=== PATIENT | female | born 1950 | race Caucasian/White ===

== ENCOUNTER 2016-11-10 13:55 | Inpatient (IN) | payer OTHER, MEDICAID ==
[2016-11-10 14:14] VITALS: BMI 33.9
--- NOTE | 2016-11-10 14:35 | ED.ABDFE ---
HPI - Time seen Time seen: 14:15 - PCP Primary Care Physician: RIKY - HPI Comment HPI Comment: PATIENT HAVE LOWER ABDOMINAL PAIN WITH CONSTIPATION SINCE FRIDAY. - Complaint Chief Complaint Doctors Comments: LOWER ABDOMINAL PAIN WITH NAUSEA. CONSTIPATED. Chief Complaint:: PT. C/O LOWER ABDOMINAL PAIN AND NAUSEA. PT. STATES SHE THOUGHT SHE WAS GETTING A UTI YESTERDAY BECAUSE SHE WAS HAVING SHARP PAINS BUT SEEMS TO THINK TODAY IT IS SOMETHING ELSE. PT. STATES SHE HAS ALSO BEEN CONSTIPATED. - Nurses notes reviewed Nurses Notes Review: Yes - Source History Provided: Patient - Mode of arrival Mode of Arrival: Ambulatory - Timing Onset of Chief Complaint: 11/07/16 Came on: Suddenly - Duration Duration: Constant Duration: Days - Location Location: RLQ, LLQ, Suprapubic - Severity Severity: Moderate - Quality Quality: Sharp - Context Onset: Suddenly - Modifying Worsening Factors: Nothing Improving Factors: Nothing - Associated signs and symptoms Associated Signs and Symptoms: Constipation PMH - PMH Past Medical History: Yes Past Medical History: Diabetes, GERD, Hypertension Past Medical History Comment: DIVERTICULITIS, BORDERLINE DIABETES, ANGINA Past Surgical History: Yes Surgical History: Cholecystectomy, Hysterectomy, Ortho Surgery Past Surgical History Comment: BACK SURGERY - Family History History of Family Medical Conditions: Yes Family Medical History: Diabetes Mellitus, Cancer, [place], Coronary Artery Disease Family Medical History Comment: CVA - Social History Does patient currently use any type of tobacco product: No Have you used tobacco products in the last 12 months: No Type of Tobacco Use: None Does any household member use tobacco: No Alcohol Use: None Do you use any recreational Drugs:: No Lives With: Spouse Lives Where: Home - infectious screening In the last 2 months have you had wt loss of >10#?: NO Have you had fever, night sweats or hemotysis?: No Have you traveled outside the country in the last 6 months?: No Isolation: Standard ROS - Review of Systems Constitutional: No Symptoms Reported Eyes: No Symptoms Reported ENTM: No Symptoms Reported Respiratoy: No Symptoms Reported Cardiovascular: No Symptoms Reported Gastrointestinal/Abdominal: Abdominal Pain, Constipation, Nausea Genitourinary: No Symptoms Reported Neurological: No Symptoms Reported Musculoskeletal: No Symptoms Reported Integumentary: No Symptoms Reported Hematologic/Lymphatic: No Symptoms Reported Endocrine: No Symptoms Reported All Other Systems: Reviewed and Negative PE - Vital Signs Vitals: Temperature 98.6 F Pulse Rate 88 Respiratory Rate 17 Blood Pressure 146/79 O2 Sat by Pulse Oximetry 97 - General Limitations: No Limitations General Appearance: Alert - Head Head Exam: Normal Inspection - Eyes Eye exam: Normal Appearance - ENT ENT Exam: Normal Exam - Neck Neck Exam: Normal Inspection - Chest Chest Inspection: Symmetric Chest Wall Rise - Respiratory Respiratory Exam: Normal Lung Sounds Bilat Respiratory Exam: Bilateral Clear to Auscultation - Cardiovascular Cardiovascular Exam: Regular Rate, Normal Rhythm, Normal Heart Sounds - Abdominal Exam Abdominal Exam: Normal Bowel Sounds, Soft, Tenderness Abdominal Tenderness: RLQ, LLQ, Suprapubic - Rectal Rectal Exam: Deferred - Back Back Exam: Normal Inspection - Extremeties Extremities Exam: Normal Inspection - External Exam: Female: Deferred : Speculum Exam (Female): Deferred : Bimanual Exam (female): Deferred - Neurologic Neurological Exam: Alert, Oriented X3 - Psychiatric Psychiatric Exam: Normal Affect, Normal Mood - Skin Skin Exam: Normal Color MDM - Differential Diagnosis Differential Diagnosis- Considerations may include:: Bowel Obstruction, Cholcystitis, Diverticular disease, Gastritus/PUD, Gastroenteritis, Pancreatitis , Urinary obstruction, Urinary tract infection, Urolithiasis Course - Treatment Treatment: SEE ORDERS - Education/Counseling Education/Counseling: Patient, Education Educated On: Diagnosis, Needs for Follow Up ROR - Labs Reviewed Laboratory Results Reviewed?: Yes Result Diagrams: 11/13/16 05:40 11/13/16 05:40 Laboratory: WBC 10.2 X10^3/uL (3.6-10.0) H 11/10/16 15:00 RBC 4.80 X10^6/uL (3.5-5.4) 11/10/16 15:00 Hgb 11.3 g/dL (12.0-16.0) L 11/10/16 15:00 Hct 35.4 % (36.0-47.0) L 11/10/16 15:00 MCV 73.8 fL (80.0-100.0) L 11/10/16 15:00 MCH 23.6 pg (27.0-34.0) L 11/10/16 15:00 MCHC 32.0 g/dL (33.0-35.0) L 11/10/16 15:00 RDW 16.3 % (11.6-16.5) 11/10/16 15:00 Plt Count 267 X10^3/uL (150.0-450.0) 11/10/16 15:00 Plt Count Comment Adequate (ADEQUATE) 11/10/16 15:00 MPV 8.2 fL (7.4-11.0) 11/10/16 15:00 Neut % 72.4 % (42.0-75.0) 11/10/16 15:00 Lymph % 15.8 % (21.0-51.0) L 11/10/16 15:00 [place] % 9.7 % (0.0-13.0) 11/10/16 15:00 Eos % 1.4 % (0.9-2.9) 11/10/16 15:00 Baso % 0.7 % (0.2-1.0) 11/10/16 15:00 Neut # 7.4 x10^3/uL (2.2-4.8) H 11/10/16 15:00 Lymph # 1.6 X10^3/uL (1.3-2.9) 11/10/16 15:00 [place] # 1.0 x10^3/uL (0.3-0.8) H 11/10/16 15:00 Eos # 0.1 x10^3/uL (0.0-0.2) 11/10/16 15:00 Baso # 0.1 X10^3/uL (0.0-0.1) 11/10/16 15:00 Absolute Nucleated RBC 0.0 /100WBC 11/10/16 15:00 Plt Morphology Comment Normal (NORMAL) 11/10/16 15:00 RBC Morphology Abnormal (NORMAL) A 11/10/16 15:00 Hypochromasia Slight A 11/10/16 15:00 Microcytosis Slight A 11/10/16 15:00 Sodium 142 mmol/L (136-145) 11/10/16 15:00 Corrected Sodium TNP 11/10/16 15:00 Potassium 3.2 mmol/L (3.5-5.1) L 11/10/16 15:00 Chloride 104 mmol/L (98-107) 11/10/16 15:00 Carbon Dioxide 27.3 mmol/L (21-32) 11/10/16 15:00 BUN 10 mg/dL (7-18) 11/10/16 15:00 Creatinine 0.93 mg/dL (0.55-1.02) 11/10/16 15:00 Est GFR (MDRD) Af Amer > 60 (>60) 11/10/16 15:00 Est GFR (MDRD) Non-Af > 60 (>60) 11/10/16 15:00 Glucose 103 mg/dL (65-99) H 11/10/16 15:00 Calcium 8.4 mg/dL (8.5-10.1) L 11/10/16 15:00 Corrected Calcium 9.0 mg/dL (8.5-10.1) 11/10/16 15:00 Total Bilirubin 0.40 mg/dL (0.2-1.0) 11/10/16 15:00 AST 16 Units/L (15-37) 11/10/16 15:00 ALT 18 Units/L (12-78) 11/10/16 15:00 Alkaline Phosphatase 62 Units/L (46-116) 11/10/16 15:00 Total Protein 7.5 g/dL (6.4-8.2) 11/10/16 15:00 Albumin 3.3 g/dL (3.4-5.0) L 11/10/16 15:00 Globulin 4.2 g/dL (2.5-4.5) 11/10/16 15:00 Albumin/Globulin Ratio 0.8 Ratio (1.1-2.1) L 11/10/16 15:00 Amylase 46 Units/L (25-115) 11/10/16 15:00 Lipase 96 Units/L (73-393) 11/10/16 15:00 Specimen Type Clean catch urine 11/10/16 14:16 Urine Color Yellow (YELLOW) 11/10/16 14:16 Urine Appearance Hazy (CLEAR) 11/10/16 14:16 Urine pH 5.0 (5.0 - 8.0) 11/10/16 14:16 Ur Specific [place] 1.020 (1.000-1.030) 11/10/16 14:16 Urine Protein 1+ (NEGATIVE) 11/10/16 14:16 Urine Glucose (UA) Negative (NEGATIVE) 11/10/16 14:16 Urine Ketones Negative (NEGATIVE) 11/10/16 14:16 Urine Occult Blood 1+ (NEGATIVE) 11/10/16 14:16 Urine Nitrite Negative (NEGATIVE) 11/10/16 14:16 Urine Bilirubin Negative (NEGATIVE) 11/10/16 14:16 Urine Urobilinogen 1+ (NORMAL) 11/10/16 14:16 Ur Leukocyte Esterase 1+ (NEGATIVE) 11/10/16 14:16 Urine RBC 01 - 03 /HPF (NEGATIVE) 11/10/16 14:16 Urine WBC 03 - 06 /HPF (NEGATIVE) 11/10/16 14:16 Ur Squamous Epith Cells Moderate /HPF (NEGATIVE) 11/10/16 14:16 Amorphous Sediment 2+ /HPF (NEGATIVE) 11/10/16 14:16 Urine Bacteria Negative /HPF (NEGATIVE) 11/10/16 14:16 Urine Mucus Moderate /HPF (NEGATIVE) 11/10/16 14:16 Ur Culture Indicated? No/not indicated 11/10/16 14:16 - XRAY XRAY Interpreted by: Radiologist XRAY Findings: REPORT DISCUSS WITH PATIENT. - Diagnosis Discharge Problem: Acute diverticulitis Abdominal pain Qualifiers: Abdominal location: lower abdomen, unspecified Qualified Code(s): R10.30 - Lower abdominal pain, unspecified - Discharge Plan Disposition: ADMITTED INPATIENT Condition: Stable - Follow ups/Referrals - Instructions
[2016-11-10 14:37] LABS: BILIRUBIN,URINE NEGATIVE (NEGATIVE); BLOOD/HEMOGLOBIN,URINE 1+ (NEGATIVE); GLUCOSE, URINE NEGATIVE (NEGATIVE); KETONES,URINE NEGATIVE (NEGATIVE); LEUKOCYTE ESTERASE ,URINE 1+ (NEGATIVE); NITRITES,URINE NEGATIVE (NEGATIVE); PROTEIN,URINE 1+ (NEGATIVE); UROBILINOGEN,URINE 1+ (NORMAL)
[2016-11-10 14:52] LABS: APPEARANCE,URINE HAZY (CLEAR); COLOR,URINE YELLOW (YELLOW)
[2016-11-10 15:05] LABS: AMORPHOUS SEDIMENT,UR 2+ /HPF (NEGATIVE); BACTERIA,URINE NEGATIVE /HPF (NEGATIVE); SQUAMOUS EPITHELIAL CELL,UR MODERATE /HPF (NEGATIVE)
[2016-11-10 15:06] LABS: MUCUS,URINE MODERATE /HPF (NEGATIVE)
[2016-11-10 15:08] LABS: BASOPHILS # (AUTO) 0.1 X10^3/uL (0.0-0.1); BASOPHILS % (AUTO) 0.7 % (0.2-1.0); EOSINOPHILS # (AUTO) 0.1 x10^3/uL (0.0-0.2); EOSINOPHILS % (AUTO) 1.4 % (0.9-2.9); HEMATOCRIT 35.4 % (36.0-47.0); HEMOGLOBIN 11.3 g/dL (12.0-16.0); LYMPHOCYTES # (AUTO) 1.6 X10^3/uL (1.3-2.9); LYMPHOCYTES % (AUTO) 15.8 % (21.0-51.0); MEAN CORPUSCULAR HEMOGLOBIN 23.6 pg (27.0-34.0); MEAN CORPUSCULAR VOLUME 73.8 fL (80.0-100.0); MEAN PLATELET VOLUME 8.2 fL (7.4-11.0); MONOCYTES % (AUTO) 9.7 % (0.0-13.0); NEUTROPHILS # (AUTO) 7.4 x10^3/uL (2.2-4.8); NEUTROPHILS % (AUTO) 72.4 % (42.0-75.0); PLATELET COUNT 267 X10^3/uL (150.0-450.0); RED CELL DISTRIBUTION WIDTH 16.3 % (11.6-16.5); WHITE BLOOD COUNT 10.2 X10^3/uL (3.6-10.0)
--- NOTE | 2016-11-10 15:24 | CT ---
HISTORY: Lower abdominal pain Study: CT abdomen and pelvis without contrast Comparison: None Technique: Multiple axial images of the abdomen and pelvis were obtained from the lung bases to the pubic symph ysis without the administration of IV contrast. Findings: The visualized portions of the lung bases are unremarkable. Imaging of the abdomen and pelvis demonstrates short segment wall thickening involving the distal de scending colon . There is associated pericolonic inflammatory stranding as well. These findings are superimposed upon a background of diverticulosis and are consistent with acute diverticulitis. Simil ar but much milder findings are identified involving the mid sigmoid colon as well. No organized flu id collection is identified to suggest abscess. There is no extraluminal free air. The cecum is dist ended by what appears to be a complex fluid filled or cystic lesion measuring approximately 4.9 cm x 5.4 cm in axial dimensions. A normal appendix is not identified. This finding could possibly repres ent a mucocele of the appendix or complex cecal mass. Correlation with colonoscopy is recommended. T here is a large hiatal hernia. The liver, spleen, pancreas, kidneys, and adrenal glands are unremark able in their CT appearance. The gallbladder is unremarkable in its CT appearance. The uterus is nicole gically absent. The urinary bladder is decompressed. The bony structures are grossly intact. Multil evel thoracolumbar spondylosis is noted. IMPRESSION: 1. Findings consistent with acute diverticulitis involving the distal descending and sigmoid colon without abscess or extraluminal free air. 2. Complex lesion involving the cecum. Please see above discussion. There is large hiatal hernia. Reported By:
[2016-11-10 15:28] LABS: ALANINE AMINOTRANSFERASE 18 Units/L (12-78); ALBUMIN 3.3 g/dL (3.4-5.0); ALKALINE PHOSPHATASE 62 Units/L (46-116); AMYLASE 46 Units/L (25-115); ASPARTATE AMINO TRANSFERASE 16 Units/L (15-37); BLOOD UREA NITROGEN 10 mg/dL (7-18); CALCIUM 8.4 mg/dL (8.5-10.1); CARBON DIOXIDE 27.3 mmol/L (21-32); CHLORIDE 104 mmol/L (98-107); CREATININE 0.93 mg/dL (0.55-1.02); GLUCOSE 103 mg/dL (65-99); LIPASE 96 Units/L (73-393); SODIUM 142 mmol/L (136-145); TOTAL PROTEIN 7.5 g/dL (6.4-8.2); eGFR BLACK RACES > 60 (>60); eGFR NON BLACK RACES > 60 (>60)
[2016-11-10 15:36] LABS: HYPOCHROMASIA SLIGHT; PLATELET MORPHOLOGY COMMENT NORMAL (NORMAL)
[2016-11-10 15:37] LABS: MICROCYTOSIS SLIGHT
[2016-11-10] MEDS ORDERED: CIPRO IV 400 MG PREMIX* 400 MG/200 ML IV.SOLN. IV SCH ×2 (17:00→19:00)
[2016-11-10] MEDS: PROTONIX INJ 40 MG VIAL IVP SCH (17:08)
[2016-11-10] MEDS: FLAGYL IV PREMIX 500 MG BAG 500 MG/100 ML BAG IV SCH ×2 (17:08→20:18)
[2016-11-10] MEDS: NS + KCL 40 MEQ/L 1,000 ML IV SCH (17:08)
--- NOTE | 2016-11-10 17:09 | RAD ---
HISTORY: 65-year-old female for NG tube placement. Study: Frontal views of the abdomen and pelvis Comparison: CT abdomen and pelvis this date. Findings: Enteric tube is coiled in the lower esophagus, removal and replacement required. Evaluation of the abdomen demonstrates a nonobstructive bowel gas pattern with stool and gas through out the colon. Pelvic phleboliths. No radiographic evidence of free intraperitoneal air. No patholog ical soft tissue mass or calcification can be observed. The bony structures are grossly intact. IMPRESSION: 1. Enteric tube coiled in the lower esophagus, removal and replacement required. 2. Nonobstructive bowel gas pattern. Reported By:
[2016-11-10] MEDS ORDERED: POTASSIUM CHLORIDE LIQ 20 MEQ UDC PO PRN (17:34)
[2016-11-10] MEDS ORDERED: K-DUR TAB 20 MEQ PO PRN (17:34)
[2016-11-10] MEDS ORDERED: K-LYTE EFFERVESCENT PO PRN (17:34)
[2016-11-10] MEDS ORDERED: K-RIDER 10 MEQ/NS 100 ML 10 MEQ/100 ML BAG IV PRN (17:34)
[2016-11-10] MEDS: PEPCID 20 MG IV PREMIX* 20 MG/50 ML BAG IV SCH ×2 (18:19→20:18)
[2016-11-10] MEDS: PHENERGAN INJ 25 MG IVP PRN (20:18)
[2016-11-10] MEDS: MORPHINE SULFATE INJ 2 MG IVP PRN (20:19)
[2016-11-10] MEDS: REQUIP PO SCH (21:29)
[2016-11-11] MEDS: FLAGYL IV PREMIX 500 MG BAG 500 MG/100 ML BAG IV SCH ×3 (03:28→14:25)
[2016-11-11 06:10] LABS: BASOPHILS % (AUTO) 0.7 % (0.2-1.0); EOSINOPHILS # (AUTO) 0.2 x10^3/uL (0.0-0.2); EOSINOPHILS % (AUTO) 2.2 % (0.9-2.9); HEMATOCRIT 32.7 % (36.0-47.0); HEMOGLOBIN 10.5 g/dL (12.0-16.0); LYMPHOCYTES # (AUTO) 1.5 X10^3/uL (1.3-2.9); LYMPHOCYTES % (AUTO) 22.1 % (21.0-51.0); MEAN CORPUSCULAR HEMOGLOBIN 23.8 pg (27.0-34.0); MEAN CORPUSCULAR VOLUME 74.3 fL (80.0-100.0); MEAN PLATELET VOLUME 8.3 fL (7.4-11.0); MONOCYTES # (AUTO) 0.8 x10^3/uL (0.3-0.8); MONOCYTES % (AUTO) 11.6 % (0.0-13.0); NEUTROPHILS # (AUTO) 4.4 x10^3/uL (2.2-4.8); NEUTROPHILS % (AUTO) 63.4 % (42.0-75.0); PLATELET COUNT 226 X10^3/uL (150.0-450.0); RED CELL DISTRIBUTION WIDTH 16.1 % (11.6-16.5); WHITE BLOOD COUNT 6.9 X10^3/uL (3.6-10.0)
[2016-11-11] MEDS: NS + KCL 40 MEQ/L 1,000 ML IV SCH ×2 (06:13→19:04)
[2016-11-11 06:34] LABS: ALANINE AMINOTRANSFERASE 20 Units/L (12-78); ALBUMIN 2.9 g/dL (3.4-5.0); ALKALINE PHOSPHATASE 59 Units/L (46-116); AMYLASE 41 Units/L (25-115); ASPARTATE AMINO TRANSFERASE 16 Units/L (15-37); BLOOD UREA NITROGEN 8 mg/dL (7-18); CALCIUM 8.3 mg/dL (8.5-10.1); CARBON DIOXIDE 27.2 mmol/L (21-32); CHLORIDE 107 mmol/L (98-107); COR CA(FOR HYPOALB) 9.2 mg/dL (8.5-10.1); GLUCOSE 102 mg/dL (65-99); LIPASE 108 Units/L (73-393); SODIUM 144 mmol/L (136-145); TOTAL PROTEIN 6.9 g/dL (6.4-8.2); eGFR BLACK RACES > 60 (>60); eGFR NON BLACK RACES > 60 (>60)
[2016-11-11 07:12] LABS: HYPOCHROMASIA 1+; PLATELET MORPHOLOGY COMMENT NORMAL (NORMAL)
[2016-11-11] MEDS: PROTONIX INJ 40 MG VIAL IVP SCH (08:13)
[2016-11-11] MEDS: MORPHINE SULFATE INJ 2 MG IVP PRN ×2 (08:13→19:45)
[2016-11-11] MEDS: PHENERGAN INJ 25 MG IVP PRN ×2 (08:14→19:47)
[2016-11-11] MEDS: PEPCID 20 MG IV PREMIX* 20 MG/50 ML BAG IV SCH ×2 (08:14→20:00)
[2016-11-11] MEDS ORDERED: CIPRO IV 400 MG PREMIX* 400 MG/200 ML IV.SOLN. IV SCH (09:00)
[2016-11-11] MEDS: ULTRAM PO SCH ×2 (11:20→19:59)
[2016-11-11] MEDS: DIOVAN TAB 160 MG PO SCH (11:20)
[2016-11-11] MEDS: ZOCOR TAB 20 MG PO SCH (11:21)
[2016-11-11] MEDS: HYDROCHLOROTHIAZIDE 12.5 MG CAP PO SCH (11:21)
[2016-11-11] MEDS: EFFEXOR XR 150 MG CAP PO SCH (11:21)
[2016-11-11] MEDS: DIFLUCAN PO SCH (16:08)
[2016-11-11] MEDS: ALBUMIN HUMAN 25%- 100ML 100 ML IV SCH (16:08)
--- NOTE | 2016-11-11 16:10 | DR.H&P ---
H&P - History & Physical for Day of: H&P Date: 11/10/16 - Chief Complaint Chief Complaint: LOWER ABDOMINAL PAIN - Allergies Allergies/Adverse Reactions: Allergies Allergy/AdvReac Type Severity Reaction Status Date / Time Codeine Allergy Verified 11/10/16 14:00 - History of Present Illness History of Present Illness: THIS IS A 65 YEAR OLD FEMALE, WHO IS A PATIENT OF DR. [facility] [place], [place]. SHE PRESENTS TO OUR EMERGENCY ROOM WITH COMPLAINTS OF LOWER ABDOMINAL PAIN SINCE LAST 11/07/16. PATIENT REPORTS ASSOCIATED NAUSEA AND VOMITING WITH INABILITY TO RETAIN PO FLUIDS. PATIENT BELIEVED SHE WAS HAVING SYMPTOMS OF A UTI DUE TO SHARP LOWER ABDOMINAL PAINS; HOWEVER, DUE TO SEVERITY OF PAIN, SHE DECIDED TO COME TO THE ER FOR FURTHER EVALUATION. PATIENT REPORTS SHE HAS BEEN CONSTIPATED. SHE REPORTS SMALL BOWEL MOVEMENT THREE DAYS AGO AND HER LAST NORMAL BOWEL MOVEMENT WAS ONE WEEK AGO. PATIENT RATES LOWER ABDOMINAL PAIN A 7 ON A 1-TO-10 PAIN SCALE. PATIENT REPORTS A HISTORY SIGNIFICANT FOR DIVERTICULITIS. LABS AND CT OBTAINED. CBC WNL EXCEPT: WBC 10.2, H/H 11.3/35.4. CMP WNL EXCEPT: POTASSIUM 3.4, GLUCOSE 103, CALCIUM 8.4, ALBUMIN 3.3. CT OF ABD/PELVIS REPORTS FINDINGS CONSISTENT WITH ACUTE DIVERTICULITIS INVOLVING THE DISTAL DESCENDING AND SIGMOID COLON WITHOUT ABSCESS OR EXTRALUMINAL FREEAIR; COMPLEX LESION INVOLVING THE CECUM; LARGE HIATAL HERNIA. NG TUBE WAS PLACED IN ER DUE TO CT RESULTS AND NAUSEA WITH VOMITING; HOWEVER, A FOLLOW UP XRAY REPORTED NG TUBE WAS COILED IN THE LOWER ESOPHAGUS. PATIENT REFUSED TO HAVE NG TUBE REPLACED. WE WILL ADMIT PATIENT, START CIPRO AND FLAGYL IV, HOLD NPO, START IV FLUIDS, AND CONTINUE TO MONITOR. WE WILL FOLLOW UP IN AM WITH LABS. - Past Medical History Past Medical History: Anemia, Angina, Depression, Diabetes, Dyslipidemia, GERD, Hypertension Additional Medical History: Diverticulitis, Diverticulosis, Previous Blood Transfusion - Past Surgical History Surgical History: Cholecystectomy, Hysterectomy, Ortho Surgery Additional Surgical History: Back Surgery - Family History Family Medical History: Diabetes Mellitus, Cancer, [place], Coronary Artery Disease - Social History Does patient currently use any type of tobacco product: No Have you used tobacco products in the last 12 months: No Type of Tobacco Use: None Does any household member use tobacco: No Alcohol Use: None Drug Use: None - Medications Home Medications: Aspirin [Aspirin Adult Low Dose] 1 tab PO DAILY 11/10/16 [History Confirmed ] Esomeprazole Magnesium [NEXIUM 40 MG *] 1 cap PO DAILY 11/10/16 [History Confirmed 11/10/16] Ropinirole HCl [REQUIP 1 MG *] 1 tab PO HS 11/10/16 [History Confirmed 11/10/16] Simvastatin [ZOCOR 20 MG *] 1 tab PO DAILY 11/10/16 [History Confirmed 11/10/16] Tramadol HCl [ULTRAM 50 MG *] 1 tab PO BID 11/10/16 [History Confirmed 11/10/16] Valsartan-Hydrochlorothiazide [Diovan Hct 160-12.5 mg] 1 tab PO DAILY 11/10/16 [ History Confirmed 11/10/16] Venlafaxine HCl Ext Rel [EFFEXOR-XR 150 MG CAP *] 1 cap PO DAILY 11/10/16 [ History Confirmed 11/10/16] - Review of Systems Constitutional: Weakness, Malaise Eyes: No Symptoms Reported. denies: Pain, Vision Change, Conjunctivae Inflammation, Eyelid Inflammation, Redness ENT: No Symptoms Reported. denies: Ear Pain, Ear Discharge, Nose Pain, Nose Discharge, Nose Congestion, Mouth Pain, Mouth Swelling, Throat Pain, Throat Swelling Respiratory: No Symptoms Reported. denies: Cough, Shortness of Breath, Hemoptysis, SOB with Excertion, Pleuritic Pain, Sputum, Wheezing Cardiovascular: No Symptoms Reported. denies: Chest Pain, Palpitations, Orthopnea, Paroxysmal Noc. Dyspnea, Edema, Light Headedness Gastrointestinal: Nausea, Vomiting, Abdominal Pain, Constipation. denies: Diarrhea, Melena, Hematochezia Genitourinary: No Symptoms Reported. denies: Dysuria, Frequency, Incontinence, Hematuria, Retention Musculoskeletal: No Symptoms Reported. denies: Shoulder Pain, Back Pain, Hand Pain, Leg Pain, Foot Pain, Neck Pain Skin: No Symptoms Reported. denies: Rash, Lesions, Jaundice, Bruising, Wound, Ecchymosis Neurological: No Symptoms Reported. denies: Weakness, Numbness, Incoordination , Change in Speech, Confusion, Seizures - Physical Exam Vital Signs: Temperature 98 F Pulse Rate [Right Brachial] 74 Respiratory Rate 22 Blood Pressure [Right Arm] 115/52 O2 Sat by Pulse Oximetry 97 Oriented: Normal, Time, Person, Place Eyes: Normal. negative: Blurred Vision, Diplopia, Discharge, Pain, Redness, Photophobia Ear: Normal. negative: Swelling, Ecchymosis, Hemotypanum, Abrasion, Laceration Nose: Normal. negative: Injected, Discharge, Blood Throat: Dry. negative: Tonsillar Hypertrophy, Exudate Respiratory: Clear Throughout Cardiovascular: Normal. negative: Murmur, Edema : Normal. negative: Dysuria, Hematuria, Frequency, Discharge, Bleeding, Auscultation: Bowel Sounds: Decreased. negative: Bruit Palpation: Normal. negative: Spleen Enlarged, Liver Enlarged, Mass Pulsatile Tenderness: Diffuse, Severe. negative: Rebound, Guarding, Rigidity Skin: Decreased [place]. negative: Diaphoresis, Wound, Bruising, Ecchymosis Musculoskeletal: Normal Psychiatric: Normal Mood Description: Calm, Appropriate Affect: Normal Speech Pattern: Clear, Appropriate - Assessment/Plan (1) Acute diverticulitis Status: Acute Plan: ADMIT PATIENT, START IV FLUIDS, IV FLAGYL AND CIPRO, HOLD NPO, START PROTONIX, PEPCID, MONITOR LABS. (2) Abdominal pain Qualifiers: Abdominal location: generalized Qualified Code(s): R10.84 - Generalized abdominal pain Status: Acute Plan: START IV FLUIDS, IV MORPHINE, TORADOL, IV ZOFRAN, MONITOR. (3) GERD (gastroesophageal reflux disease) Qualifiers: Esophagitis presence: esophagitis presence not specified Qualified Code(s) : K21.9 - Gastro-esophageal reflux disease without esophagitis Status: Chronic (4) Diabetes type 2, controlled Qualifiers: Diabetes mellitus complication status: without complication Diabetes mellitus complication detail: D Diabetic retinopathy severity: D Proliferative retinopathy type: P Diabetes mellitus macular edema: D Diabetes mellitus termite control technician insulin use: without termite control technician use Laterality: L Chronic kidney disease stage: C Qualified Code(s): E11.9 - Type 2 diabetes mellitus without complications Status: Chronic (5) Hypertension Qualifiers: Hypertension type: essential hypertension Qualified Code(s): I10 - Essential (primary) hypertension Status: Chronic (6) Hyperlipidemia Qualifiers: Hyperlipidemia type: mixed hyperlipidemia Qualified Code(s): E78.2 - Mixed hyperlipidemia Status: Chronic (7) Depression Qualifiers: Depression Type: major depressive disorder Major depression recurrence: M Active/Remission status: currently active Major depression episode severity : moderate Psychotic features: P Trimester: T Status: Chronic
--- NOTE | 2016-11-11 17:26 | PCM.PROG ---
Progress Note - Progress Note for Day of Date: 11/11/16 - Subjective Subjective: PATIENT CONTINUES TO REPORT ABDOMINAL PAIN WITH OCCASSIONAL NAUSEA. PATIENT REPORTS NAUSEA IS CONTROLLED WITH ZOFRAN IV. ON PALPATION, DIFFUSE TENDERNESS IS NOTED TO ABDOMEN. WE DISCUSS TREATMENT OF IV ANTIBIOTICS AND GI CONSULT WITH PATIENT. SHE VOICES UNDERSTANDING AND IS IN AGREEMENT WITH PLANS. PATIENT REPORTS VAGINAL YEAST INFECTION WITH DISCHARGE. CBC WNL EXCEPT: H/H 10.5/32.7. CMP WNL EXCEPT: GLUCOSE 102, CALCIUM 8.3, ALBUMIN 2.9. WE WILL CONTINUE TO HOLD PATIENT NPO, CONSULT GI, START ALBUMIN IV, DIFLUCAN, AND CONTINUE TO MONITOR. - Past Medical Family Social History Past Med/Fam/Surg Hx: No changes since H&P Allergies: Allergies Codeine Allergy (Verified 11/10/16 14:00) - Review of Systems ROS: No change since H&P - Vital Signs and I&O's Vital Signs: Temperature 98.1 F Pulse Rate [Right Brachial] 67 Respiratory Rate 17 Blood Pressure [Right Arm] 125/73 O2 Sat by Pulse Oximetry 98 Intake and Output: Intake & Output 11/09/16 11/10/16 11/11/16 11/12/16 11:59 11:59 11:59 11:59 Intake Total 1141 960 Balance 1141 960 - Physical Exam Oriented: Normal, Time, Person, Place Eyes: Normal. negative: Blurred Vision, Diplopia, Discharge, Pain, Redness, Photophobia Ear: Normal. negative: Swelling, Ecchymosis, Hemotypanum, Abrasion, Laceration Nose: Normal. negative: Injected, Discharge, Blood Throat: Dry. negative: Tonsillar Hypertrophy, Exudate Respiratory: Normal Cardiovascular: Normal. negative: Murmur, Edema : Normal. negative: Dysuria, Hematuria, Frequency, Discharge, Bleeding, Auscultation: Bowel Sounds: Decreased. negative: Bruit Palpation: Normal. negative: Spleen Enlarged, Liver Enlarged, Mass Pulsatile Tenderness: Diffuse, Moderate. negative: Rebound, Guarding, Rigidity Skin: Decreased Turgur. negative: Diaphoresis, Wound, Bruising, Ecchymosis Musculoskeletal: Normal Psychiatric: Normal Mood Description: Calm, Appropriate Affect: Normal Speech Pattern: Clear, Appropriate - Laboratory and Diagnostics Result Diagrams: 11/11/16 05:25 11/11/16 05:25 Labs: Laboratory WBC 6.9 X10^3/uL (3.6-10.0) 11/11/16 05:25 RBC 4.40 X10^6/uL (3.5-5.4) 11/11/16 05:25 Hgb 10.5 g/dL (12.0-16.0) L 11/11/16 05:25 Hct 32.7 % (36.0-47.0) L 11/11/16 05:25 MCV 74.3 fL (80.0-100.0) L 11/11/16 05:25 MCH 23.8 pg (27.0-34.0) L 11/11/16 05:25 MCHC 32.0 g/dL (33.0-35.0) L 11/11/16 05:25 RDW 16.1 % (11.6-16.5) 11/11/16 05:25 Plt Count 226 X10^3/uL (150.0-450.0) 11/11/16 05:25 Plt Count Comment Adequate (ADEQUATE) 11/11/16 05:25 MPV 8.3 fL (7.4-11.0) 11/11/16 05:25 Neut % 63.4 % (42.0-75.0) 11/11/16 05:25 Lymph % 22.1 % (21.0-51.0) 11/11/16 05:25 [place] % 11.6 % (0.0-13.0) 11/11/16 05:25 Eos % 2.2 % (0.9-2.9) 11/11/16 05:25 Baso % 0.7 % (0.2-1.0) 11/11/16 05:25 Neut # 4.4 x10^3/uL (2.2-4.8) 11/11/16 05:25 Lymph # 1.5 X10^3/uL (1.3-2.9) 11/11/16 05:25 [place] # 0.8 x10^3/uL (0.3-0.8) 11/11/16 05:25 Eos # 0.2 x10^3/uL (0.0-0.2) 11/11/16 05:25 Baso # 0.0 X10^3/uL (0.0-0.1) 11/11/16 05:25 Absolute Nucleated RBC 0.0 /100WBC 11/11/16 05:25 Plt Morphology Comment Normal (NORMAL) 11/11/16 05:25 RBC Morphology Abnormal (NORMAL) A 11/11/16 05:25 Hypochromasia 1+ A 11/11/16 05:25 Microcytosis Slight A 11/10/16 15:00 Sodium 144 mmol/L (136-145) 11/11/16 05:25 Corrected Sodium TNP 11/11/16 05:25 Potassium 3.5 mmol/L (3.5-5.1) 11/11/16 05:25 Chloride 107 mmol/L (98-107) 11/11/16 05:25 Carbon Dioxide 27.2 mmol/L (21-32) 11/11/16 05:25 BUN 8 mg/dL (7-18) 11/11/16 05:25 Creatinine 0.90 mg/dL (0.55-1.02) 11/11/16 05:25 Est GFR (MDRD) Af Amer > 60 (>60) 11/11/16 05:25 Est GFR (MDRD) Non-Af > 60 (>60) 11/11/16 05:25 Glucose 102 mg/dL (65-99) H 11/11/16 05:25 Calcium 8.3 mg/dL (8.5-10.1) L 11/11/16 05:25 Corrected Calcium 9.2 mg/dL (8.5-10.1) 11/11/16 05:25 Total Bilirubin 0.40 mg/dL (0.2-1.0) 11/11/16 05:25 AST 16 Units/L (15-37) 11/11/16 05:25 ALT 20 Units/L (12-78) 11/11/16 05:25 Alkaline Phosphatase 59 Units/L (46-116) 11/11/16 05:25 Total Protein 6.9 g/dL (6.4-8.2) 11/11/16 05:25 Albumin 2.9 g/dL (3.4-5.0) L 11/11/16 05:25 Globulin 4.0 g/dL (2.5-4.5) 11/11/16 05:25 Albumin/Globulin Ratio 0.7 Ratio (1.1-2.1) L 11/11/16 05:25 Amylase 41 Units/L (25-115) 11/11/16 05:25 Lipase 108 Units/L (73-393) 11/11/16 05:25 Specimen Type Clean catch urine 11/10/16 14:16 Urine Color Yellow (YELLOW) 11/10/16 14:16 Urine Appearance Hazy (CLEAR) 11/10/16 14:16 Urine pH 5.0 (5.0 - 8.0) 11/10/16 14:16 Ur Specific [place] 1.020 (1.000-1.030) 11/10/16 14:16 Urine Protein 1+ (NEGATIVE) 11/10/16 14:16 Urine Glucose (UA) Negative (NEGATIVE) 11/10/16 14:16 Urine Ketones Negative (NEGATIVE) 11/10/16 14:16 Urine Occult Blood 1+ (NEGATIVE) 11/10/16 14:16 Urine Nitrite Negative (NEGATIVE) 11/10/16 14:16 Urine Bilirubin Negative (NEGATIVE) 11/10/16 14:16 Urine Urobilinogen 1+ (NORMAL) 11/10/16 14:16 Ur Leukocyte Esterase 1+ (NEGATIVE) 11/10/16 14:16 Urine RBC 01 - 03 /HPF (NEGATIVE) 11/10/16 14:16 Urine WBC 03 - 06 /HPF (NEGATIVE) 11/10/16 14:16 Ur Squamous Epith Cells Moderate /HPF (NEGATIVE) 11/10/16 14:16 Amorphous Sediment 2+ /HPF (NEGATIVE) 11/10/16 14:16 Urine Bacteria Negative /HPF (NEGATIVE) 11/10/16 14:16 Urine Mucus Moderate /HPF (NEGATIVE) 11/10/16 14:16 Ur Culture Indicated? No/not indicated 11/10/16 14:16 - Plan (1) Acute diverticulitis Status: Acute Plan: CONTINUE IV FLUIDS, IV FLAGYL AND CIPRO, HOLD NPO, PROTONIX, PEPCID, MONITOR LABS. (2) Hypoalbuminemia Status: Acute (3) Abdominal pain Status: Acute Qualifiers: Abdominal location: generalized Qualified Code(s): R10.84 - Generalized abdominal pain Plan: CONTINUE IV FLUIDS, IV MORPHINE, TORADOL, IV ZOFRAN, MONITOR. (4) Vaginal yeast infection Status: Acute Plan: START DIFLUCAN, MONITOR. (5) GERD (gastroesophageal reflux disease) Status: Chronic Qualifiers: Esophagitis presence: esophagitis presence not specified Qualified Code(s) : K21.9 - Gastro-esophageal reflux disease without esophagitis (6) Diabetes type 2, controlled Status: Chronic Qualifiers: Diabetes mellitus complication status: without complication Diabetes mellitus complication detail: D Diabetic retinopathy severity: D Proliferative retinopathy type: P Diabetes mellitus macular edema: D Diabetes mellitus vice president supply chain insulin use: without half-way use Laterality: L Chronic kidney disease stage: C Qualified Code(s): E11.9 - Type 2 diabetes mellitus without complications (7) Hypertension Status: Chronic Qualifiers: Hypertension type: essential hypertension Qualified Code(s): I10 - Essential (primary) hypertension (8) Hyperlipidemia Status: Chronic Qualifiers: Hyperlipidemia type: mixed hyperlipidemia Qualified Code(s): E78.2 - Mixed hyperlipidemia (9) Depression Status: Chronic Qualifiers: Depression Type: major depressive disorder Major depression recurrence: M Active/Remission status: currently active Major depression episode severity : moderate Psychotic features: P Trimester: T
[2016-11-11] MEDS ORDERED: NS 100 ML IV + SPIKE MINIBAG* 100 ML IV ONE (19:52)
[2016-11-11] MEDS: REQUIP PO SCH (20:13)
[2016-11-11] MEDS: ZOSYN VIAL 3.375 GM IV SCH (20:15)
[2016-11-12] MEDS ORDERED: NS 100 ML IV + SPIKE MINIBAG* 100 ML IV ONE ×4 (02:26→20:23)
[2016-11-12] MEDS: MORPHINE SULFATE INJ 2 MG IVP PRN (02:31)
[2016-11-12] MEDS: ZOSYN VIAL 3.375 GM IV SCH ×4 (02:31→20:31)
[2016-11-12] MEDS: ZOFRAN INJ 4 MG VIAL IVP PRN ×2 (02:31→20:30)
[2016-11-12] MEDS: NS + KCL 40 MEQ/L 1,000 ML IV SCH ×2 (03:32→08:40)
[2016-11-12 06:11] LABS: BASOPHILS % (AUTO) 1.1 % (0.2-1.0); EOSINOPHILS # (AUTO) 0.2 x10^3/uL (0.0-0.2); EOSINOPHILS % (AUTO) 4.3 % (0.9-2.9); HEMATOCRIT 30.7 % (36.0-47.0); LYMPHOCYTES # (AUTO) 1.1 X10^3/uL (1.3-2.9); LYMPHOCYTES % (AUTO) 27.7 % (21.0-51.0); MEAN CORPUSCULAR HEMOGLOBIN 24.3 pg (27.0-34.0); MEAN CORPUSCULAR HGB CONC 32.7 g/dL (33.0-35.0); MEAN CORPUSCULAR VOLUME 74.2 fL (80.0-100.0); MEAN PLATELET VOLUME 8.2 fL (7.4-11.0); MONOCYTES # (AUTO) 0.6 x10^3/uL (0.3-0.8); MONOCYTES % (AUTO) 14.8 % (0.0-13.0); NEUTROPHILS % (AUTO) 52.1 % (42.0-75.0); PLATELET COUNT 209 X10^3/uL (150.0-450.0); RED BLOOD COUNT 4.13 X10^6/uL (3.5-5.4); RED CELL DISTRIBUTION WIDTH 15.8 % (11.6-16.5); WHITE BLOOD COUNT 3.9 X10^3/uL (3.6-10.0)
[2016-11-12 06:32] LABS: ALANINE AMINOTRANSFERASE 19 Units/L (12-78); ALKALINE PHOSPHATASE 46 Units/L (46-116); ASPARTATE AMINO TRANSFERASE 18 Units/L (15-37); BLOOD UREA NITROGEN 11 mg/dL (7-18); CALCIUM 8.3 mg/dL (8.5-10.1); CARBON DIOXIDE 25.5 mmol/L (21-32); CHLORIDE 109 mmol/L (98-107); COR CA(FOR HYPOALB) 9.1 mg/dL (8.5-10.1); CREATININE 0.91 mg/dL (0.55-1.02); GLUCOSE 94 mg/dL (65-99); SODIUM 142 mmol/L (136-145); TOTAL PROTEIN 6.5 g/dL (6.4-8.2); eGFR BLACK RACES > 60 (>60); eGFR NON BLACK RACES > 60 (>60)
[2016-11-12 06:59] LABS: HYPOCHROMASIA SLIGHT; MICROCYTOSIS SLIGHT; PLATELET MORPHOLOGY COMMENT NORMAL (NORMAL)
[2016-11-12] MEDS: PEPCID 20 MG IV PREMIX* 20 MG/50 ML BAG IV SCH ×2 (08:10→20:15)
[2016-11-12] MEDS: EFFEXOR XR 150 MG CAP PO SCH (08:18)
[2016-11-12] MEDS: HYDROCHLOROTHIAZIDE 12.5 MG CAP PO SCH (08:18)
[2016-11-12] MEDS: DIOVAN TAB 160 MG PO SCH (08:18)
[2016-11-12] MEDS: ZOCOR TAB 20 MG PO SCH (08:18)
[2016-11-12] MEDS: ULTRAM PO SCH ×2 (08:18→20:35)
[2016-11-12] MEDS: ALBUMIN HUMAN 25%- 100ML 100 ML IV SCH (08:20)
[2016-11-12] MEDS: DIFLUCAN PO SCH (08:24)
[2016-11-12] MEDS: PROTONIX INJ 40 MG VIAL IVP SCH (08:24)
[2016-11-12] MEDS: PHENERGAN INJ 25 MG IVP PRN (11:27)
[2016-11-12] MEDS ORDERED: PROCTOSOL HC CRM 2.5% EXT PRN (17:49)
[2016-11-12] MEDS: NS 1000 ML 1,000 ML IV SCH (18:34)
[2016-11-12] MEDS: TORADOL 30 MG VIAL IVP PRN (20:31)
[2016-11-12] MEDS: REQUIP PO SCH (20:31)
[2016-11-13] MEDS ORDERED: NS 100 ML IV + SPIKE MINIBAG* 100 ML IV ONE ×4 (02:26→20:13)
[2016-11-13] MEDS: ZOSYN VIAL 3.375 GM IV SCH ×4 (02:57→20:22)
[2016-11-13] MEDS: NS 1000 ML 1,000 ML IV SCH ×3 (05:43→20:19)
[2016-11-13 06:17] LABS: BASOPHILS # (AUTO) 0.1 X10^3/uL (0.0-0.1); BASOPHILS % (AUTO) 2.4 % (0.2-1.0); EOSINOPHILS # (AUTO) 0.1 x10^3/uL (0.0-0.2); EOSINOPHILS % (AUTO) 4.3 % (0.9-2.9); HEMATOCRIT 29.9 % (36.0-47.0); HEMOGLOBIN 9.6 g/dL (12.0-16.0); LYMPHOCYTES % (AUTO) 31.9 % (21.0-51.0); MEAN CORPUSCULAR HEMOGLOBIN 24.2 pg (27.0-34.0); MEAN CORPUSCULAR HGB CONC 32.3 g/dL (33.0-35.0); MEAN CORPUSCULAR VOLUME 75.1 fL (80.0-100.0); MEAN PLATELET VOLUME 8.4 fL (7.4-11.0); MONOCYTES # (AUTO) 0.5 x10^3/uL (0.3-0.8); MONOCYTES % (AUTO) 15.7 % (0.0-13.0); NEUTROPHILS # (AUTO) 1.4 x10^3/uL (2.2-4.8); NEUTROPHILS % (AUTO) 45.7 % (42.0-75.0); PLATELET COUNT 204 X10^3/uL (150.0-450.0); RED BLOOD COUNT 3.98 X10^6/uL (3.5-5.4); RED CELL DISTRIBUTION WIDTH 15.8 % (11.6-16.5); WHITE BLOOD COUNT 3.1 X10^3/uL (3.6-10.0)
[2016-11-13 06:26] LABS: HYPOCHROMASIA SLIGHT; PLATELET MORPHOLOGY COMMENT NORMAL (NORMAL)
[2016-11-13 06:29] LABS: ALANINE AMINOTRANSFERASE 21 Units/L (12-78); ALKALINE PHOSPHATASE 41 Units/L (46-116); ASPARTATE AMINO TRANSFERASE 21 Units/L (15-37); BLOOD UREA NITROGEN 12 mg/dL (7-18); CALCIUM 8.2 mg/dL (8.5-10.1); CARBON DIOXIDE 24.5 mmol/L (21-32); CHLORIDE 109 mmol/L (98-107); CREATININE 1.03 mg/dL (0.55-1.02); GLUCOSE 90 mg/dL (65-99); SODIUM 142 mmol/L (136-145); TOTAL PROTEIN 6.2 g/dL (6.4-8.2); eGFR BLACK RACES > 60 (>60); eGFR NON BLACK RACES 57 (>60)
[2016-11-13] MEDS: ALBUMIN HUMAN 25%- 100ML 100 ML IV SCH (08:30)
[2016-11-13] MEDS: PEPCID 20 MG IV PREMIX* 20 MG/50 ML BAG IV SCH ×2 (08:30→20:09)
[2016-11-13] MEDS: PROTONIX INJ 40 MG VIAL IVP SCH (08:30)
[2016-11-13] MEDS: ULTRAM PO SCH ×2 (08:31→20:19)
[2016-11-13] MEDS: DIFLUCAN PO SCH (08:31)
[2016-11-13] MEDS: DIOVAN TAB 160 MG PO SCH (08:31)
[2016-11-13] MEDS: ZOCOR TAB 20 MG PO SCH (08:31)
[2016-11-13] MEDS: EFFEXOR XR 150 MG CAP PO SCH (08:31)
[2016-11-13] MEDS: HYDROCHLOROTHIAZIDE 12.5 MG CAP PO SCH (08:31)
--- NOTE | 2016-11-13 13:56 | DR.CONSULT ---
Consult - Consultation for Day of: Date: 11/11/16 - Chief Complaint Chief Complaint: Diverticulitis - Allergies Allergies/Adverse Reactions: Allergies Allergy/AdvReac Type Severity Reaction Status Date / Time Codeine Allergy Verified 11/10/16 14:00 - History of Present Illness History of Present Illness: The patient is a 65 yo F who presented to the [facility] ER with LLQ and suprapubic abdominal pain. (-) N/V/d. (-) melena or hematochezia. The patient reports chronic intermittent diarrhea and constipation. (+) known h/o diverticulitis requiring antibiotics and hospitalizations. Last c-scope was approximately 5 years ago with polypectomy. (-) f/c. No sick contacts or recent travel / camping. Work-up demonstrated stranding in the sigmoid colon consistent with diverticulitis as well as a cystic structure near the cecum. The patient was admitted to the hospital and started on cipro / flagyl with improvement of pain. Currently, the patient states she feels better and is requesting a diet. - Past Medical History Past Medical History: Diabetes, GERD, Hypertension Additional Medical History: Diverticulitis, Diverticulosis, Previous Blood Transfusion - Past Surgical History Surgical History: Cholecystectomy, Hysterectomy, Ortho Surgery Additional Surgical History: Back Surgery - Family History Family Medical History: Diabetes Mellitus, Cancer, [place], Coronary Artery Disease - Social History Does patient currently use any type of tobacco product: No Have you used tobacco products in the last 12 months: No Type of Tobacco Use: None Does any household member use tobacco: No Alcohol Use: None Drug Use: None - Medications Home Medications: Aspirin [Aspirin Adult Low Dose] 1 tab PO DAILY 11/10/16 [History Confirmed ] Esomeprazole Magnesium [NEXIUM 40 MG *] 1 cap PO DAILY 11/10/16 [History Confirmed 11/10/16] Ropinirole HCl [REQUIP 1 MG *] 1 tab PO HS 11/10/16 [History Confirmed 11/10/16] Simvastatin [ZOCOR 20 MG *] 1 tab PO DAILY 11/10/16 [History Confirmed 11/10/16] Tramadol HCl [ULTRAM 50 MG *] 1 tab PO BID 11/10/16 [History Confirmed 11/10/16] Valsartan-Hydrochlorothiazide [Diovan Hct 160-12.5 mg] 1 tab PO DAILY 11/10/16 [ History Confirmed 11/10/16] Venlafaxine HCl Ext Rel [EFFEXOR-XR 150 MG CAP *] 1 cap PO DAILY 11/10/16 [ History Confirmed 11/10/16] - Review of Systems Constitutional: See HPI Eyes: No Symptoms Reported ENT: No Symptoms Reported Respiratory: No Symptoms Reported Cardiovascular: No Symptoms Reported Gastrointestinal: See HPI, Abdominal Pain Genitourinary: No Symptoms Reported Musculoskeletal: No Symptoms Reported Skin: No Symptoms Reported Neurological: No Symptoms Reported - Physical Exam Vital Signs: Temperature 98.6 F Pulse Rate [Right Brachial] 65 Respiratory Rate 20 Blood Pressure [Left Arm] 108/59 Blood Pressure [Right Arm] 103/67 O2 Sat by Pulse Oximetry 100 Oriented: Normal, Time, Person, Place Eyes: Normal Throat: Normal Respiratory: Clear Throughout Cardiovascular: Normal Auscultation: Bowel Sounds: Normal Palpation: Normal Tenderness: LLQ, Suprapubic Skin: Normal Musculoskeletal: Normal Psychiatric: Normal Mood Description: Calm Affect: Normal Speech Pattern: Clear, Appropriate - Plan Plan: 65 yo F with recurrent diverticulitis: CT reviewed in radiology. Fluid in RLQ may represent developing abscess from perforated diverticulum. However, the patient's symptoms have improved. Mildy TTP suprapubic=LLQ. Suspect perforation sealed. Would change to Zosyn and re-evaulate with CT of the abdomen and pelvis. If fluid collection fails to resolve, would recommend diagnostic laparoscopy with washout and drain placement. The patient will need outpatient colonoscopy in 6-[address] Ochoa is consulted to see the patient during this admission. As symptoms have imrpoved, advance to clear liquid diet. Instructed the patient to only sip clear liquids and to stop for any increasing or persistent abdominal pain.
[2016-11-13] MEDS: REQUIP PO SCH (20:09)
[2016-11-13] MEDS: TORADOL 30 MG VIAL IVP PRN (20:17)
[2016-11-14] MEDS ORDERED: NS 100 ML IV + SPIKE MINIBAG* 100 ML IV ONE ×2 (03:12→07:42)
[2016-11-14] MEDS: ZOSYN VIAL 3.375 GM IV SCH ×2 (03:23→09:53)
[2016-11-14 06:19] LABS: BASOPHILS % (AUTO) 1.3 % (0.2-1.0); EOSINOPHILS # (AUTO) 0.2 x10^3/uL (0.0-0.2); EOSINOPHILS % (AUTO) 4.5 % (0.9-2.9); HEMOGLOBIN 9.7 g/dL (12.0-16.0); LYMPHOCYTES # (AUTO) 1.2 X10^3/uL (1.3-2.9); LYMPHOCYTES % (AUTO) 30.6 % (21.0-51.0); MEAN CORPUSCULAR HEMOGLOBIN 24.1 pg (27.0-34.0); MEAN CORPUSCULAR HGB CONC 32.4 g/dL (33.0-35.0); MEAN CORPUSCULAR VOLUME 74.3 fL (80.0-100.0); MEAN PLATELET VOLUME 8.4 fL (7.4-11.0); MONOCYTES # (AUTO) 0.5 x10^3/uL (0.3-0.8); NEUTROPHILS # (AUTO) 1.9 x10^3/uL (2.2-4.8); NEUTROPHILS % (AUTO) 49.6 % (42.0-75.0); PLATELET COUNT 228 X10^3/uL (150.0-450.0); RED BLOOD COUNT 4.04 X10^6/uL (3.5-5.4); RED CELL DISTRIBUTION WIDTH 15.8 % (11.6-16.5); WHITE BLOOD COUNT 3.8 X10^3/uL (3.6-10.0)
[2016-11-14 06:39] LABS: ALANINE AMINOTRANSFERASE 25 Units/L (12-78); ALBUMIN 3.4 g/dL (3.4-5.0); ALKALINE PHOSPHATASE 43 Units/L (46-116); ASPARTATE AMINO TRANSFERASE 23 Units/L (15-37); BLOOD UREA NITROGEN 10 mg/dL (7-18); CALCIUM 8.5 mg/dL (8.5-10.1); CARBON DIOXIDE 22.3 mmol/L (21-32); CHLORIDE 111 mmol/L (98-107); CREATININE 1.03 mg/dL (0.55-1.02); GLUCOSE 92 mg/dL (65-99); SODIUM 144 mmol/L (136-145); TOTAL PROTEIN 6.5 g/dL (6.4-8.2); eGFR BLACK RACES > 60 (>60); eGFR NON BLACK RACES 57 (>60)
[2016-11-14 06:56] LABS: HYPOCHROMASIA SLIGHT; PLATELET MORPHOLOGY COMMENT NORMAL (NORMAL)
--- NOTE | 2016-11-14 07:03 | CT ---
CT abdomen and pelvis without contrast Indication: Followup diverticulitis Comparison: 11/10/2016 Technique: Multiple axial images of the abdomen and pelvis were obtained from the lung bases to the pubic symph ysis without the administration of IV contrast. Radiation dose reduction techniques were performed utilizing adjustment for MA/kVP based on patient body size. Findings: Ground-glass opacities are slightly more conspicuous within the right middle and lower lobes with a small right-sided pleural effusion, clinical correlation for signs of pneumonia or aspiration. The t here is an approximate 2.3 x 1.5 cm hypoattenuating lesion within the inferior aspect of the posteri or hepatic segment on axial image 33 which is indeterminate the gallbladder is absent . Bile ducts a re normal in caliber. The spleen is and pancreas or is unremarkable. Adrenal glands and kidneys demo nstrate no abnormality. Upper GI tract again contains a moderate-sized hiatal hernia . Urinary bladd er is collapsed. No pelvic or adnexal mass. The rectum is unremarkable. Small amount of free fluid i s noted within the pelvis. The inflammatory change within the distal descending colon is less sever e than on prior examination consistent with improving diverticulitis. No free air is identified. Sma ll amount of fluid is noted within the colon. Again there is fluid distension this or mass at the ce mariza base for which colonoscopy or followup IV and oral contrast enhanced CT examination. No adenopat hy within the abdomen or pelvis. The appendix is not visualized. No acute osseous abnormality. Impression: 1. Interval improvement in descending colonic diverticulitis without free air or localizing fluid co llection. 2. Increased ground-glass opacities within the right middle and lower lobe with a small right-sided pleural effusion suspicious for developing infiltrate or aspiration. Clinical correlation is needed. 3. Fluid distension of the cecal base is less conspicuous than on prior examination; however again f ollowup colonoscopy or CT examination with IV and oral contrast enhancement is recommended for furth er evaluation exclusion of underlying cecal based mass. 4. Several other incidental findings which are unchanged from prior examination as discussed above. Reported By:
[2016-11-14] MEDS: HYDROCHLOROTHIAZIDE 12.5 MG CAP PO SCH (08:07)
[2016-11-14] MEDS: ZOCOR TAB 20 MG PO SCH (08:07)
[2016-11-14] MEDS: DIFLUCAN PO SCH (08:07)
[2016-11-14] MEDS: EFFEXOR XR 150 MG CAP PO SCH (08:07)
[2016-11-14] MEDS: PEPCID 20 MG IV PREMIX* 20 MG/50 ML BAG IV SCH (08:08)
[2016-11-14] MEDS: ALBUMIN HUMAN 25%- 100ML 100 ML IV SCH (08:08)
[2016-11-14] MEDS: PROTONIX INJ 40 MG VIAL IVP SCH (08:09)
[2016-11-14] MEDS: ULTRAM PO SCH (08:09)
[2016-11-14] MEDS: DIOVAN TAB 160 MG PO SCH (08:09)
[2016-11-14 09:02] VITALS: BP 139/70
--- NOTE | 2016-11-14 12:06 | PCM.PROG ---
Progress Note - Progress Note for Day of Date: 11/12/16 - Subjective Subjective: PATIENT CONTINUES WITH DIFFUSE LLQ ABDOMINAL PAIN UPON PALPATION. DR. TARANGO CONSULTED YESTERDAY AND CHANGED IV ANTIBIOTICS TO ZOSYN. A CLEAR LIQUID DIET WAS ALSO ORDERED AND PATIENT WAS INSTRUCTED TO TAKE IN FLUIDS SLOWLY. PATIENT TOLERATES LIQUIDS FAIR. WE ARE AWAITING GI CONSULT TODAY. CBC WNL EXCEPT: H/H 10.0/30.7. CMP WNL EXCEPT: CHL 109, CALCIUM 8.3, ALBUMIN 3.0. WE WILL CONTINUE CURRENT TREATMENT, CONTINUE TO MONITOR, AND FOLLOW UP IN AM WITH LABS. - Past Medical Family Social History Past Med/Fam/Surg Hx: No changes since H&P Allergies: Allergies Codeine Allergy (Verified 11/10/16 14:00) - Review of Systems ROS: No change since H&P - Vital Signs and I&O's Vital Signs: Temperature 98.4 F Pulse Rate [Right Brachial] 58 Respiratory Rate 20 Blood Pressure [Left Arm] 139/70 Blood Pressure [Right Arm] 103/67 O2 Sat by Pulse Oximetry 99 Intake and Output: Intake & Output 11/12/16 11/13/16 11/14/16 11/15/16 11:59 11:59 11:59 11:59 Intake Total 2831 3048 3538 Balance 2831 3048 3538 - Physical Exam Oriented: Normal, Time, Person, Place Eyes: Normal Ear: Normal. negative: Swelling, Ecchymosis, Hemotypanum, Abrasion, Laceration Nose: Normal. negative: Injected, Discharge, Blood Throat: Normal Respiratory: Normal Cardiovascular: Normal : Normal. negative: Dysuria, Hematuria, Frequency, Discharge, Bleeding, Auscultation: Bowel Sounds: Increased. negative: Bruit Palpation: Normal. negative: Spleen Enlarged, Liver Enlarged, Mass Pulsatile Tenderness: LLQ, Suprapubic Skin: Normal Musculoskeletal: Normal Psychiatric: Normal Mood Description: Calm Affect: Normal Speech Pattern: Clear, Appropriate - Laboratory and Diagnostics Result Diagrams: 11/14/16 05:05 11/14/16 05:05 Labs: Laboratory WBC 3.8 X10^3/uL (3.6-10.0) 11/14/16 05:05 RBC 4.04 X10^6/uL (3.5-5.4) 11/14/16 05:05 Hgb 9.7 g/dL (12.0-16.0) L 11/14/16 05:05 Hct 30.0 % (36.0-47.0) L 11/14/16 05:05 MCV 74.3 fL (80.0-100.0) L 11/14/16 05:05 MCH 24.1 pg (27.0-34.0) L 11/14/16 05:05 MCHC 32.4 g/dL (33.0-35.0) L 11/14/16 05:05 RDW 15.8 % (11.6-16.5) 11/14/16 05:05 Plt Count 228 X10^3/uL (150.0-450.0) 11/14/16 05:05 Plt Count Comment Adequate (ADEQUATE) 11/14/16 05:05 MPV 8.4 fL (7.4-11.0) 11/14/16 05:05 Neut % 49.6 % (42.0-75.0) 11/14/16 05:05 Lymph % 30.6 % (21.0-51.0) 11/14/16 05:05 Thomas % 14.0 % (0.0-13.0) H 11/14/16 05:05 Eos % 4.5 % (0.9-2.9) H 11/14/16 05:05 Baso % 1.3 % (0.2-1.0) H 11/14/16 05:05 Neut # 1.9 x10^3/uL (2.2-4.8) L 11/14/16 05:05 Lymph # 1.2 X10^3/uL (1.3-2.9) L 11/14/16 05:05 Thomas # 0.5 x10^3/uL (0.3-0.8) 11/14/16 05:05 Eos # 0.2 x10^3/uL (0.0-0.2) 11/14/16 05:05 Baso # 0.0 X10^3/uL (0.0-0.1) 11/14/16 05:05 Absolute Nucleated RBC 0.0 /100WBC 11/14/16 05:05 Plt Morphology Comment Normal (NORMAL) 11/14/16 05:05 RBC Morphology Abnormal (NORMAL) A 11/14/16 05:05 Hypochromasia Slight A 11/14/16 05:05 Microcytosis Slight A 11/12/16 05:45 Sodium 144 mmol/L (136-145) 11/14/16 05:05 Corrected Sodium TNP 11/14/16 05:05 Potassium 4.0 mmol/L (3.5-5.1) 11/14/16 05:05 Chloride 111 mmol/L (98-107) H 11/14/16 05:05 Carbon Dioxide 22.3 mmol/L (21-32) 11/14/16 05:05 BUN 10 mg/dL (7-18) 11/14/16 05:05 Creatinine 1.03 mg/dL (0.55-1.02) H 11/14/16 05:05 Est GFR (MDRD) Af Amer > 60 (>60) 11/14/16 05:05 Est GFR (MDRD) Non-Af 57 (>60) L 11/14/16 05:05 Glucose 92 mg/dL (65-99) 11/14/16 05:05 Calcium 8.5 mg/dL (8.5-10.1) 11/14/16 05:05 Corrected Calcium TNP 11/14/16 05:05 Total Bilirubin 0.30 mg/dL (0.2-1.0) 11/14/16 05:05 AST 23 Units/L (15-37) 11/14/16 05:05 ALT 25 Units/L (12-78) 11/14/16 05:05 Alkaline Phosphatase 43 Units/L (46-116) L 11/14/16 05:05 Total Protein 6.5 g/dL (6.4-8.2) 11/14/16 05:05 Albumin 3.4 g/dL (3.4-5.0) 11/14/16 05:05 Globulin 3.1 g/dL (2.5-4.5) 11/14/16 05:05 Albumin/Globulin Ratio 1.1 Ratio (1.1-2.1) 11/14/16 05:05 Amylase 41 Units/L (25-115) 11/11/16 05:25 Lipase 108 Units/L (73-393) 11/11/16 05:25 Specimen Type Clean catch urine 11/10/16 14:16 Urine Color Yellow (YELLOW) 11/10/16 14:16 Urine Appearance Hazy (CLEAR) 11/10/16 14:16 Urine pH 5.0 (5.0 - 8.0) 11/10/16 14:16 Ur Specific [place] 1.020 (1.000-1.030) 11/10/16 14:16 Urine Protein 1+ (NEGATIVE) 11/10/16 14:16 Urine Glucose (UA) Negative (NEGATIVE) 11/10/16 14:16 Urine Ketones Negative (NEGATIVE) 11/10/16 14:16 Urine Occult Blood 1+ (NEGATIVE) 11/10/16 14:16 Urine Nitrite Negative (NEGATIVE) 11/10/16 14:16 Urine Bilirubin Negative (NEGATIVE) 11/10/16 14:16 Urine Urobilinogen 1+ (NORMAL) 11/10/16 14:16 Ur Leukocyte Esterase 1+ (NEGATIVE) 11/10/16 14:16 Urine RBC 01 - 03 /HPF (NEGATIVE) 11/10/16 14:16 Urine WBC 03 - 06 /HPF (NEGATIVE) 11/10/16 14:16 Ur Squamous Epith Cells Moderate /HPF (NEGATIVE) 11/10/16 14:16 Amorphous Sediment 2+ /HPF (NEGATIVE) 11/10/16 14:16 Urine Bacteria Negative /HPF (NEGATIVE) 11/10/16 14:16 Urine Mucus Moderate /HPF (NEGATIVE) 11/10/16 14:16 Ur Culture Indicated? No/not indicated 11/10/16 14:16 - Plan (1) Acute diverticulitis Status: Acute Plan: CONSULT GI, CONTINUE IV FLUIDS, IV ZOSYN, CLEAR LIQUID DIET, PROTONIX, PEPCID, MONITOR LABS. (2) Hypoalbuminemia Status: Acute Plan: START ALBUMIN IV DAILY, MONITOR LABS. (3) Abdominal pain Status: Acute Qualifiers: Abdominal location: lower abdomen, unspecified Qualified Code(s): R10.30 - Lower abdominal pain, unspecified Plan: CONTINUE IV FLUIDS, IV MORPHINE, TORADOL, IV ZOFRAN, MONITOR. (4) Vaginal yeast infection Status: Acute Plan: CONTINUE DIFLUCAN, MONITOR. (5) GERD (gastroesophageal reflux disease) Status: Chronic Qualifiers: Esophagitis presence: esophagitis presence not specified Qualified Code(s) : K21.9 - Gastro-esophageal reflux disease without esophagitis (6) Diabetes type 2, controlled Status: Chronic Qualifiers: Diabetes mellitus complication status: without complication Diabetes mellitus complication detail: D Diabetic retinopathy severity: D Proliferative retinopathy type: P Diabetes mellitus macular edema: D Diabetes mellitus exterminator termite insulin use: without mcfp use Laterality: L Chronic kidney disease stage: C Qualified Code(s): E11.9 - Type 2 diabetes mellitus without complications (7) Hypertension Status: Chronic Qualifiers: Hypertension type: essential hypertension Qualified Code(s): I10 - Essential (primary) hypertension (8) Hyperlipidemia Status: Chronic Qualifiers: Hyperlipidemia type: mixed hyperlipidemia Qualified Code(s): E78.2 - Mixed hyperlipidemia (9) Depression Status: Chronic Qualifiers: Depression Type: major depressive disorder Major depression recurrence: M Active/Remission status: currently active Major depression episode severity : moderate Psychotic features: P Trimester: T
--- NOTE | 2016-11-14 12:57 | PCM.PROG ---
Progress Note - Progress Note for Day of Date: 11/13/16 - Subjective Subjective: PATIENT REPORTS ABDOMINAL PAIN IS IMPROVING, HOWEVER; SHE REPORTS INTERMITTENT, STABBING PAIN TO ABDOMEN. SHE CONTINUES ON CLEAR LIQUID DIET AND CONTINUES TO TOLERATE FAIR. SHE CONTINUES WITH DIFFUSE LLQ ABDOMINAL PAIN UPON PALPATION. GI CONSULTED YESTERDAY AND PLANS FOR COLONOSCOPY AFTER TWO-WEEK TREATMENT WITH ANTIBIOTICS FOR DIVERTICULITIS. WE DISCUSS THIS WITH PATIENT AND SHE IS IN AGREEMENT. CBC WNL EXCEPT: WBC 3.1, H/H 9.6/29.9. CMP WNL EXCEPT : CHL 109, CREAT 1.03, GFR 57, CALCIUM 8.2, TOT PROTEIN 6.2, ALBUMIN 3.0. WE WILL OBTAIN A FOLLOW UP CT OF ABD/PELVIS IN AM, AND POSSIBLY PLAN FOR DISCHARGE PROVIDING PATIENT IS STABLE AND CONTINUES TO IMPROVE. - Past Medical Family Social History Past Med/Fam/Surg Hx: No changes since H&P Allergies: Allergies Codeine Allergy (Verified 11/10/16 14:00) - Review of Systems ROS: No change since H&P - Vital Signs and I&O's Vital Signs: Temperature 98.4 F Pulse Rate [Right Brachial] 58 Respiratory Rate 20 Blood Pressure [Left Arm] 139/70 Blood Pressure [Right Arm] 103/67 O2 Sat by Pulse Oximetry 99 Intake and Output: Intake & Output 11/12/16 11/13/16 11/14/16 11/15/16 11:59 11:59 11:59 11:59 Intake Total 2831 3048 3538 Balance 2831 3048 3538 - Physical Exam Oriented: Normal, Time, Person, Place Eyes: Normal Ear: Normal. negative: Swelling, Ecchymosis, Hemotypanum, Abrasion, Laceration Nose: Normal. negative: Injected, Discharge, Blood Throat: Normal Respiratory: Normal Cardiovascular: Normal : Normal. negative: Dysuria, Hematuria, Frequency, Discharge, Bleeding, Auscultation: Bowel Sounds: Increased. negative: Bruit Palpation: Normal. negative: Spleen Enlarged, Liver Enlarged, Mass Pulsatile Tenderness: LLQ, Suprapubic, Mild. negative: Rebound, Guarding, Rigidity Skin: Normal Musculoskeletal: Normal Psychiatric: Normal Mood Description: Calm Affect: Normal Speech Pattern: Clear, Appropriate - Laboratory and Diagnostics Result Diagrams: 11/14/16 05:05 11/14/16 05:05 Labs: Laboratory WBC 3.8 X10^3/uL (3.6-10.0) 11/14/16 05:05 RBC 4.04 X10^6/uL (3.5-5.4) 11/14/16 05:05 Hgb 9.7 g/dL (12.0-16.0) L 11/14/16 05:05 Hct 30.0 % (36.0-47.0) L 11/14/16 05:05 MCV 74.3 fL (80.0-100.0) L 11/14/16 05:05 MCH 24.1 pg (27.0-34.0) L 11/14/16 05:05 MCHC 32.4 g/dL (33.0-35.0) L 11/14/16 05:05 RDW 15.8 % (11.6-16.5) 11/14/16 05:05 Plt Count 228 X10^3/uL (150.0-450.0) 11/14/16 05:05 Plt Count Comment Adequate (ADEQUATE) 11/14/16 05:05 MPV 8.4 fL (7.4-11.0) 11/14/16 05:05 Neut % 49.6 % (42.0-75.0) 11/14/16 05:05 Lymph % 30.6 % (21.0-51.0) 11/14/16 05:05 [place] % 14.0 % (0.0-13.0) H 11/14/16 05:05 Eos % 4.5 % (0.9-2.9) H 11/14/16 05:05 Baso % 1.3 % (0.2-1.0) H 11/14/16 05:05 Neut # 1.9 x10^3/uL (2.2-4.8) L 11/14/16 05:05 Lymph # 1.2 X10^3/uL (1.3-2.9) L 11/14/16 05:05 [place] # 0.5 x10^3/uL (0.3-0.8) 11/14/16 05:05 Eos # 0.2 x10^3/uL (0.0-0.2) 11/14/16 05:05 Baso # 0.0 X10^3/uL (0.0-0.1) 11/14/16 05:05 Absolute Nucleated RBC 0.0 /100WBC 11/14/16 05:05 Plt Morphology Comment Normal (NORMAL) 11/14/16 05:05 RBC Morphology Abnormal (NORMAL) A 11/14/16 05:05 Hypochromasia Slight A 11/14/16 05:05 Microcytosis Slight A 11/12/16 05:45 Sodium 144 mmol/L (136-145) 11/14/16 05:05 Corrected Sodium TNP 11/14/16 05:05 Potassium 4.0 mmol/L (3.5-5.1) 11/14/16 05:05 Chloride 111 mmol/L (98-107) H 11/14/16 05:05 Carbon Dioxide 22.3 mmol/L (21-32) 11/14/16 05:05 BUN 10 mg/dL (7-18) 11/14/16 05:05 Creatinine 1.03 mg/dL (0.55-1.02) H 11/14/16 05:05 Est GFR (MDRD) Af Amer > 60 (>60) 11/14/16 05:05 Est GFR (MDRD) Non-Af 57 (>60) L 11/14/16 05:05 Glucose 92 mg/dL (65-99) 11/14/16 05:05 Calcium 8.5 mg/dL (8.5-10.1) 11/14/16 05:05 Corrected Calcium TNP 11/14/16 05:05 Total Bilirubin 0.30 mg/dL (0.2-1.0) 11/14/16 05:05 AST 23 Units/L (15-37) 11/14/16 05:05 ALT 25 Units/L (12-78) 11/14/16 05:05 Alkaline Phosphatase 43 Units/L (46-116) L 11/14/16 05:05 Total Protein 6.5 g/dL (6.4-8.2) 11/14/16 05:05 Albumin 3.4 g/dL (3.4-5.0) 11/14/16 05:05 Globulin 3.1 g/dL (2.5-4.5) 11/14/16 05:05 Albumin/Globulin Ratio 1.1 Ratio (1.1-2.1) 11/14/16 05:05 Amylase 41 Units/L (25-115) 11/11/16 05:25 Lipase 108 Units/L (73-393) 11/11/16 05:25 Specimen Type Clean catch urine 11/10/16 14:16 Urine Color Yellow (YELLOW) 11/10/16 14:16 Urine Appearance Hazy (CLEAR) 11/10/16 14:16 Urine pH 5.0 (5.0 - 8.0) 11/10/16 14:16 Ur Specific [place] 1.020 (1.000-1.030) 11/10/16 14:16 Urine Protein 1+ (NEGATIVE) 11/10/16 14:16 Urine Glucose (UA) Negative (NEGATIVE) 11/10/16 14:16 Urine Ketones Negative (NEGATIVE) 11/10/16 14:16 Urine Occult Blood 1+ (NEGATIVE) 11/10/16 14:16 Urine Nitrite Negative (NEGATIVE) 11/10/16 14:16 Urine Bilirubin Negative (NEGATIVE) 11/10/16 14:16 Urine Urobilinogen 1+ (NORMAL) 11/10/16 14:16 Ur Leukocyte Esterase 1+ (NEGATIVE) 11/10/16 14:16 Urine RBC 01 - 03 /HPF (NEGATIVE) 11/10/16 14:16 Urine WBC 03 - 06 /HPF (NEGATIVE) 11/10/16 14:16 Ur Squamous Epith Cells Moderate /HPF (NEGATIVE) 11/10/16 14:16 Amorphous Sediment 2+ /HPF (NEGATIVE) 11/10/16 14:16 Urine Bacteria Negative /HPF (NEGATIVE) 11/10/16 14:16 Urine Mucus Moderate /HPF (NEGATIVE) 11/10/16 14:16 Ur Culture Indicated? No/not indicated 11/10/16 14:16 - Plan (1) Acute diverticulitis Status: Acute Plan: CONSULT GI, CONTINUE IV FLUIDS, IV ZOSYN, CLEAR LIQUID DIET, PROTONIX, PEPCID, MONITOR LABS. (2) Hypoalbuminemia Status: Acute Plan: CONTINUE ALBUMIN IV DAILY, MONITOR LABS. (3) Abdominal pain Status: Acute Qualifiers: Abdominal location: lower abdomen, unspecified Qualified Code(s): R10.30 - Lower abdominal pain, unspecified Plan: CONTINUE IV FLUIDS, IV MORPHINE, TORADOL, IV ZOFRAN, MONITOR. (4) Vaginal yeast infection Status: Acute Plan: CONTINUE DIFLUCAN, MONITOR. (5) GERD (gastroesophageal reflux disease) Status: Chronic Qualifiers: Esophagitis presence: esophagitis presence not specified Qualified Code(s) : K21.9 - Gastro-esophageal reflux disease without esophagitis (6) Diabetes type 2, controlled Status: Chronic Qualifiers: Diabetes mellitus complication status: without complication Diabetes mellitus complication detail: D Diabetic retinopathy severity: D Proliferative retinopathy type: P Diabetes mellitus macular edema: D Diabetes mellitus half-way insulin use: without half-way use Laterality: L Chronic kidney disease stage: C Qualified Code(s): E11.9 - Type 2 diabetes mellitus without complications (7) Hypertension Status: Chronic Qualifiers: Hypertension type: essential hypertension Qualified Code(s): I10 - Essential (primary) hypertension (8) Hyperlipidemia Status: Chronic Qualifiers: Hyperlipidemia type: mixed hyperlipidemia Qualified Code(s): E78.2 - Mixed hyperlipidemia (9) Depression Status: Chronic Qualifiers: Depression Type: major depressive disorder Major depression recurrence: M Active/Remission status: currently active Major depression episode severity : moderate Psychotic features: P Trimester: T
== END 2016-11-14 11:30 | disposition home or self-care (01) | DRG 328 ==
LOC: ER 14:07 → ICU 16:16 → OBSVTOIN 16:16
PROVIDERS: ADMIT Internal Medicine; ATTEND Internal Medicine
PROC: 0D9670Z Drainage of Stomach with Drainage Device, Via Natural or Artificial Opening (ICD-10-PCS; principal; 2016-11-10)
PROC: 0DP67UZ Removal of Feeding Device from Stomach, Via Natural or Artificial Opening (ICD-10-PCS; 2016-11-10)
DX: K57.32 Diverticulitis of large intestine without perforation or abscess without bleeding (principal); R10.84 Generalized abdominal pain; K59.01 Slow transit constipation; R11.2 Nausea with vomiting, unspecified; E78.2 Mixed hyperlipidemia; K21.9 Gastro-esophageal reflux disease without esophagitis; I10 Essential (primary) hypertension; F32.89 Other specified depressive episodes; B37.3 Candidiasis of vulva and vagina; R19.7 Diarrhea, unspecified; E11.9 Type 2 diabetes mellitus without complications
CPT/HCPCS: 36415; 74000; 74176; 80053; 81001; 82150; 83690; 85025; 96365; 99284; A4222; C9113; P9047; S0028; S0030; J0744; J1885; J2270; J2405; J2543; J2550

== ENCOUNTER 2016-12-05 08:37 | Day surgery (SDC) | payer OTHER, MEDICAID ==
[2016-12-05] MEDS ORDERED: D5 LR 1000 ML 1,000 ML IV ONE (08:43)
[2016-12-05] MEDS ORDERED: DIPRIVAN VIAL 20 ML ONE (10:05)
[2016-12-05 10:48] VITALS: BP 122/63
[2016-12-05] MEDS ORDERED: ATROPINE SULFATE ABBOJECT ONE (11:15)
== END 2016-12-05 10:57 | disposition home or self-care (01) ==
LOC: SURG1 08:37
PROVIDERS: ATTEND Internal Medicine Gastroenterology
PROC: 0DB68ZX Excision of Stomach, Via Natural or Artificial Opening Endoscopic, Diagnostic (ICD-10-PCS; principal; 2016-12-05 10:45)
PROC: 0DB88ZX Excision of Small Intestine, Via Natural or Artificial Opening Endoscopic, Diagnostic (ICD-10-PCS; principal; 2016-12-05 10:45)
PROC: 0DJ08ZZ Inspection of Upper Intestinal Tract, Via Natural or Artificial Opening Endoscopic (ICD-10-PCS; principal; 2016-12-05 10:45)
DX: R11.2 Nausea with vomiting, unspecified (principal); R10.13 Epigastric pain; Z87.19 Personal history of other diseases of the digestive system; K20.8 Other esophagitis; K44.9 Diaphragmatic hernia without obstruction or gangrene; K29.60 Other gastritis without bleeding; K31.89 Other diseases of stomach and duodenum
CPT/HCPCS: A4217; J3490; J7120

== ENCOUNTER 2016-12-12 08:18 | Day surgery (SDC) | payer OTHER, MEDICAID ==
[2016-12-12] MEDS ORDERED: D5 LR 1000 ML 1,000 ML IV ONE (08:34)
[2016-12-12] MEDS ORDERED: DIPRIVAN VIAL 20 ML ONE ×2 (09:34→09:48)
[2016-12-12 10:21] VITALS: BP 113/57
== END 2016-12-12 10:25 | disposition home or self-care (01) ==
LOC: SURG1 08:18
PROVIDERS: ATTEND Internal Medicine Gastroenterology
PROC: 0DBE8ZX Excision of Large Intestine, Via Natural or Artificial Opening Endoscopic, Diagnostic (ICD-10-PCS; principal; 2016-12-12 10:00)
PROC: 0DJD8ZZ Inspection of Lower Intestinal Tract, Via Natural or Artificial Opening Endoscopic (ICD-10-PCS; principal; 2016-12-12 10:00)
DX: R11.2 Nausea with vomiting, unspecified (principal); R10.32 Left lower quadrant pain; R19.4 Change in bowel habit; R93.5 Abnormal findings on diagnostic imaging of other abdominal regions, including retroperitoneum; K63.89 Other specified diseases of intestine; K57.30 Diverticulosis of large intestine without perforation or abscess without bleeding; K64.0 First degree hemorrhoids
CPT/HCPCS: A4217; J3490; J7120